=== PATIENT | male | born 1980 | race Caucasian/White ===

== ENCOUNTER 2022-04-07 20:10 | Emergency (ER) | payer OTHER, SELFPAY ==
[2022-04-07 20:12] VITALS: BP 124/82; PULSE 80; RESP 16; TEMP 36.2; O2SAT 96; BMI 23.0
--- NOTE | 2022-04-07 20:46 | CRLHL7_ITS ---
For Patients: As a result of the Cures Act, medical imaging exams and procedure reports are released immediately into your electronic medical record. You may view this report before your referring provider. If you have questions, please contact your health care provider. INDICATION: Injury. TECHNIQUE: Three views of the right thumb. COMPARISON: None. IMPRESSION : There is soft tissue irregularity and swelling along the interphalangeal joint of the thumb and a comminuted, intra-articular fracture of the dorsal radial aspect of the base of the distal phalanx of the thumb. A few punctate osseous fragments are displaced dorsally and radially. There is no dislocation. Dictated by Joaquina Ferrera MD @ 04/07/2022 9:12:19 PM (Electronically Signed)
--- NOTE | 2022-04-07 20:48 | ED_ITS ---
HPI - General Adult General Time Seen by Provider: 20:48 Date Seen: 04/07/22 Chief complaint: Laceration/Wound Stated complaint: thumb lac Time Seen by Provider: 04/07/22 20:25 Source: patient Mode of arrival: ambulatory Limitations: no limitations History of Present Illness HPI narrative: Patient is a 41 year white male who cut his hand on a table saw, basically cut his medial aspect of his thumb at the just distal to the IP joint. He has had limited flexion extension she got laceration from the mid just play on the distal the IP joint volar did distal about half way around the thumb he still able to move the thumb. He is up-to-date on tetanus within last year, denies any significant health history, no allergies to medicines. No recent illness Related Data Allergies Allergy/AdvReac Type Severity Reaction Status Date / Time No Known Drug Allergies Allergy Verified 04/07/22 20:15 Review of Systems Status of ROS: Reports: 6 or more systems reviewed and unremarkable except as noted in History and below PFSH PFS Social History Smoking Status: Current every day smoker How often do you have a drink containing alcohol: monthly or less AUDIT-C Alcohol total score: 1 Non-prescribed substance use: denies use Exam Narrative: Exam Narrative: Objective: The patient is alert orient x3 Vital signs unremarkable Right thumb shows a half way around circumferential laceration from the mid dorsum of the thumb just distal to the IP joint to the volar surface just distal to the IP joint day wound opens significantly and it is very deep down to probably through bone. He did cut this with a table saw. Reports he is up that on tetanus within the last year he has no sensation distally and he has does have some no real great cap refill on the side that the thumb is cut which is the lateral to medial side he is able to flex extend the thumb at the IP joint x-ray X-ray of the thumb is pending Procedure: After sterile soaking in Betadine and Shur-Clens and saline the wound was injected with 1% xylocaine and then subsequently closed with 3-0 simple of the simple interrupted Ethilon sutures. There was good skin edge approximation good hemostasis. He still had no sensation in the distal part of his thumb, but he was able to flex extend his thumb at the IP joint. There did not appear to be significant cap refill but the patient does have a lot a chemical in debris on his hand prior to irrigation and cleansing that did not fully remove and may have some pain there as well Const: Vital Signs, click to edit/add: Vital Signs - 24 hr 04/07/22 20:12 Temperature 97.1 F L Pulse Rate [Left P ulse Oximeter] 80 Respiratory Rate 16 Blood Pressure [Ri ght Upper Arm] 124/82 Pulse Oximetry 96 Oxygen Delivery Me thod Room Air Course Vital Signs Vital signs: Initial Vital Signs Temperature 97.1 F L 04/07/22 20:12 Temperature Source Temporal Artery Scan 04/07/22 20:12 Pulse Rate 80 04/07/22 20:12 Respiratory Rate 16 04/07/22 20:12 Blood Pressure 124/82 04/07/22 20:12 Blood Pressure Mean 96 04/07/22 20:12 Blood Pressure Position Sitting 04/07/22 20:12 Pulse Oximetry 96 04/07/22 20:12 Oxygen Delivery Method 04/07/22 20:12 Vital Signs Temperature 97.1 F L 04/07/22 20:12 Pulse Rate 80 04/07/22 20:12 Respiratory Rate 16 04/07/22 20:12 Blood Pressure 124/82 04/07/22 20:12 Pulse Oximetry 96 04/07/22 20:12 Oxygen Delivery Method 04/07/22 20:12 Temperature 97.1 F L 04/07/22 20:12 Pulse Rate 80 04/07/22 20:12 Respiratory Rate 16 04/07/22 20:12 Blood Pressure 124/82 04/07/22 20:12 Pulse Oximetry 96 04/07/22 20:12 Oxygen Delivery Method 04/07/22 20:12 Medical Decision Making MDM Narrative Medical decision making narrative: Given the significance of the injury is unclear at this time the patient will have a viable distal thumb however it was reattached he will need to engage in light activity, will put on Keflex 500 q.i.d. 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 Any difficulty probably could consult Orthopedics here in town, but I did mention them that they do not to hand surgery. Addendum: Patient's x-ray shows a distal tuft fracture, await Radiology reading my reading is that he has got a distal tuft fracture no marked displacement. Hand followup as described above PN his were comfortable plan Keflex, Kittrell, and he is up-to-date on tetanus. Discharge Plan Discharge Clinical Impression: Laceration Patient Disposition: Home w/ Parent or Adult Condition: Improved Additional Instructions: Light activity with the right hand, Kittrell as needed, with careful adherence to its sedation properties, no drinking or driving with the Kittrell. Keflex 500 q.i.d. x5 days. Hand surgery follow-up. instymed prescriptions Activity Level: Light activity Activity Detail: No use right hand until follow-up hand surgeon Discharge Diet: Regular Stand Alone Forms: [employer] Info Instructions
[2022-04-07] MEDS: cephALEXin 500 MG CAPSULE PO (21:08)
[2022-04-07] MEDS: HYDROCODONE/ACETAMIN 7.5-325 TABLET 1 TAB PO (21:08)
== END 2022-04-07 21:23 | disposition home or self-care (01) ==
PROVIDERS: Emergency Provider Family Medicine
DX: S61.011A Laceration without foreign body of right thumb without damage to nail, initial encounter (principal); W31.2XXA Contact with powered woodworking and forming machines, initial encounter
CPT/HCPCS: 12001; 73140; 99283; A9270

== ENCOUNTER 2025-05-21 09:38 | Emergency (ER) | payer OTHER, SELFPAY ==
--- OUTSIDE RECORDS SUMMARY | 2025-05-21 09:45 | XMS_ITS | Clinical Summary ---
Author Organization [facility] Address [address], [place] [address] Care Team Providers Care After School Caregiver Name Role Phone Polo-FritzEduardo [facility] Primary Care Provid er Source Comments You are receiving this document as you are listed as the primary care provider,follow-up provider, or the patient has been referred to you for consultation.This is in compliance with the Medicare andMedicaid EHR Incentive Program,which states Providers who transition their patient to another setting of careor provider of care or refers their patient to another provider of care shouldprovide summary care record for each transition of care or referral. [facility] Allergies No known active allergies Medications No known medications Active Problems Problem Noted Date Diagnosed Date Warts, genital 12/16/2016 Problems related to high-risk sexual behavior Overview (05/24/2019): Sexually Active High-risk Tobacco use disorder Immunizations Immunization Administration Dates Next Due MMR 10/14/1993,11/27/1984 PCV20 ([id number]) 08/10/2023 Polio, Unspecified Formulation 01/22/1985,1984 Td (7+ yrs) 01/22/1985,11/27/1984 Tdap 02/06/2021 Social History Tobacco Use Types Packs/Day Years Used Date Smoking Tobacco: Every Day Cigarettes 1 18 Smokeless Tobacco: Never Tobacco Cessation:Ready to Q uit: Not Asked; Counseling Given: Not Answered Alcohol Use Standard Drinks/Week Comments Yes 0 (1 standard drink = 0.6 oz pur e alcohol) occasionally PHQ-2 Answer Date Recorded PHQ-2 Score 0 08/10/2023 Financial Resource Strain Answer Date R ecorded Is it hard for you to pay fo r the very basics like food, housing, medical care or heating? No 08/10/2023 Food Insecurity Answer Date Recorded Does your food run out before you have the money to buy more? No 08/10/2023 Transportation Needs Answer Date Record ed Does a lack of transportatio n keep you from your medical appointments or from getting your medications? No 024 Sex and Gender Information Value Date Recorded Sex Assigned at Not on file Legal Sex Male 5:50 AM CDT Gender Identity Not on file Sexual Orientation Not on file Last Filed Vital Signs Vital Sign Reading Time Taken Comments Blood Pressure 98/46 08/10/2023 6:58 AM SEXUAL ASSAULT RESPONSE COORDINATOR Pulse 58 08/10/2023 6:58 AM SEXUAL ASSAULT RESPONSE COORDINATOR Temperature 37.1 C (98.7 F) 03/26/2022 10:51 PM CDT Respiratory Rate 20 03/26/2022 10:51 PM CDT Oxygen Saturation 100% 03/26/2022 10:51 PM CDT Inhaled Oxygen Concentration - - Weight 73 kg (161 lb) 08/10/2023 6:58 AM SEXUAL ASSAULT RESPONSE COORDINATOR Height 182.9 cm (6') 08/10/2023 6:58 AM SEXUAL ASSAULT RESPONSE COORDINATOR Body Mass Index 21.84 08/10/2023 6:58 AM SEXUAL ASSAULT RESPONSE COORDINATOR Plan of Treatment Health Maintenance Due Date Last Done Comments IPV (Polio) Vaccine (3 of 3 - 4-dose series) 07/25/1985 01/22/1985, 11/27/1984 HIV Screening (Preventive Services) 1997 HepB Vaccine (1) 2000 HPV Vaccine (1 - 3-dose SCDM series) 2008 COVID-19 Vaccine (2023-2 5 season) 2025 Influenza Vaccine (#1) 2025 Adult Preventive Visit 08/10/2025 08/10/2023 Cholesterol 08/10/2028 08/10/2023 DTaP/Tdap/Td Vaccine (2 - Tdap) 02/06/2031 02/06/2021, 01/22/1985, 11/27/1984 Zoster/Shingles Vaccine (1 o f 2) 2031 Hep C Screening (Preventive Services) Completed 08/10/2023 Pneumococcal Vaccine Completed 08/10/2023 HepA Vaccine Aged Out No longer eligi ble based on patient's age to complete this topic Hib Vaccine Aged Out No longer eligi ble based on patient's age to complete this topic MCV4 Vaccine Aged Out No longer eligi ble based on patient's age to complete this topic Meningococcal B Vaccine Aged Out No l onger eligible based on patient's age to complete this topic Procedures Procedure Name Priority Date/Time Associated Diagnosis Comments HEPATITIS C ANTIBODY, WITH REFLEX (ANTI-HCV) Routine 08/10/2023 7:57 AM SEXUAL ASSAULT RESPONSE COORDINATOR Need for hepatitis C screening test LIPID PANEL & DIRECT LDL (IF NEEDED) Routine 08/10/2023 7:57 AM SEXUAL ASSAULT RESPONSE COORDINATOR Screening for cholesterol level from Last 3 Months or Most Recently Relevant to Health Maintenance Results * (ABNORMAL) Lipid Panel and Direct LDL(If Needed) (08/10/2023 7:57 AM SEXUAL ASSAULT RESPONSE COORDINATOR) Cholesterol 215(H) 0 - 199 mg/dL 08/10/2023 2:52 PM [facility] Triglyceride 63 <=149 mg/dL 08/10/2023 2:52 PM [facility] HDL Cholesterol 58 >=40 mg/dL 2:52 PM [facility] LDL, Calculated 144(H) <130 mg/dL 2:52 PM [facility] Non HDL Chol, Calculated 157 <=159 mg/dL 08/10/2023 2:52 PM [facility] Cholesterol/HDL Ratio 3.7 <=5.0 08/10/2023 2:52 PM [facility] Hours Fasting 0.1 8 - 12 Hours 08/10/2023 2:52 PM [facility] Blood Venipuncture / Unknown 08/10/2023 7:57 AM SEXUAL ASSAULT RESPONSE COORDINATOR 08/10/2023 7:57 AM SEXUAL ASSAULT RESPONSE COORDINATOR Eduardo Cervantes [facility] Shira l Result [facility] [address] [place] [address], [facility] [phone] * Hepatitis C Antibody, with Reflex (08/10/2023 7:57 AM SEXUAL ASSAULT RESPONSE COORDINATOR) Hepatitis C Antibody Negative (Non Reactive) Negative (Non Reactive) 08/10/2023 4:15 PM SEXUAL ASSAULT RESPONSE COORDINATOR [facility] Comment:Antibodies to HCV no t detected. Does not exclude the possiblity of exposure to HCV. Blood Venipuncture / Unknown 08/10/2023 7:57 AM SEXUAL ASSAULT RESPONSE COORDINATOR 08/10/2023 7:57 AM SEXUAL ASSAULT RESPONSE COORDINATOR Eduardo MagananteMaryluSundeliashari [facility] Shira l Result [facility] [address] from Last 3 Months or Most Recently Relevant to Health Maintenance Insurance [employer]ED [employer] Care Teams After School Caregiver Relationship Specialty Start Date End Date Eduardo Cervantes, ANA [address] [place] [address] PCP - General Family Practice 12/15/16
--- OUTSIDE RECORDS SUMMARY | 2025-05-21 09:45 | XMS_ITS | Clinical Summary ---
Author Organization [employer] [facility] Address [facility] [place] [address] Care Team Providers Care Sales Agent Food Vending Service Name Role Phone Pcp, No Primary Care Provider Unavailabl e Allergies No known active allergies Medications imiquimod 2.5 % topical cream Apply topically to affected area(s). 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 Gender Identity Not on file Sexual Orientation Not on file Obstetrics History Last Filed Vital Signs Vital Sign Reading Time Taken Comments Blood Pressure 108/64 12/25/2016 9:18 AM CDT Pulse 75 12/25/2016 9:18 AM CDT Temperature 36.7 C (98 F) 12/25/2016 9:18 AM CDT Respiratory Rate 14 12/25/2016 9:18 AM CDT Oxygen Saturation 97% 12/25/2016 9:18 AM CDT Inhaled Oxygen Concentration - - Weight 66.8 kg (147 lb 3.2 oz) 12/25/2016 9:18 A M CDT Height 181 cm (5' 11.25) 12/25/2016 9:18 AM CDT Body Mass Index 20.39 12/25/2016 9:18 AM CDT Plan of Treatment Health Maintenance Due Date Last Done Comments Tetanus booster 1992 Depression screening for age 12+ 1993 HIV for age 15-65 1996 Hepatitis C screening for ag e 18-79 1999 Hepatitis B series for 19+ ( 1 of 3 - 19+ 3-dose series) 2000 HPV series for age 9-45 (1 - 3-dose SCDM series) 2008 Lipids for age 35-44 2016 BMI (ht and wt on same day) for age 18+ 12/25/2017 12/25/2016 Influenza Vaccine (#1) 2025 RSV vaccine for adults or (1 - 1-dose 75+ series) 2056 Pneumococcal series for age 6-49 Aged Out No longer eligible based on patient's age to complete this topic Insurance BLUE CR[employer] OF [employer]-ITS Care Teams Sales Agent Food Vending Service Relationship Specialty Start Date End Date Pcp, No . PCP - General 07/03/13
--- OUTSIDE RECORDS SUMMARY | 2025-05-21 09:45 | XMS_ITS | Clinical Summary ---
Author Organization [facility] Address [address] [place] [id number] Care Team Providers Care Skein Winder Name Role Phone No Ref-Primary, Physician Primary Care Provider Allergies No known active allergies Medications oxyCODONE (ROXICODONE) 5 MG tablet Take 1 tablet (5 mg) by mouth every 6 hours as needed for severe pain 10 tablet 03/27/2022 Active Immunizations Immunization Administration Dates Next Due TDAP (Adacel,Boostrix) 02/06/2021 Social History Tobacco Use Types Packs/Day Years Used Date Smoking Tobacco: Never Assessed Adolescent Education Answer Date Record ed Getting School Help Needed Not on file 04/23 Sex and Gender Information Value Date Recorded Sex Assigned at Not on file Legal 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
[2025-05-21 09:58] VITALS: BP 109/67; PULSE 53; RESP 20; TEMP 36.8; O2SAT 98; BMI 22.2
--- NOTE | 2025-05-21 10:20 | ED.GENADULT ---
HPI - General Adult General Date Seen: 05/21/25 Chief complaint: Extremity Pain/Injury, Upper Stated complaint: R hand splinter Time Seen by Provider: 05/21/25 09:42 Source: patient Mode of arrival: ambulatory Limitations: no limitations History of Present Illness HPI narrative: Patient is a 45-year-old male for concerns of a splinter in his right index finger. He states about 30 minutes prior a piece of wood went through his finger. This occurred between MCP and PIP on the volar aspect he states the large chunk that came on the radial aspect pulled out and then he was able to pull the small lower part on the ulnar aspect out. He believes he got at all has got all of it out and does not feel a splinter currently but his made him come in to make sure. No other concerns noted. Related Data Previous Rx's ?Medication ?Instructions ?Recorded cephalexin 500 mg capsule 500 mg PO QID #20 caps 05/21/25 Allergies Allergy/AdvReac Type Severity Reaction Status Date / Time No Known Drug Allergies Allergy Verified 04/07/22 20:15 PFSH [facility] Social History Smoking Status: Current every day smoker How often do you have a drink containing alcohol: monthly or less AUDIT-C Alcohol total score: 1 Non-prescribed substance use: denies use Exam Narrative: Exam Narrative: Const: Well-nourished, Well-developed, in no distress Eyes: PERRL, no conjunctival injection, and symmetrical lids HENT: Atraumatic external nose and ears. Moist mucous membranes. MSK:Extremities w/o deformity, Normal Active ROM Skin: Warm, Dry. There is a 2 mm laceration on the volar aspect of the right index finger between the MCP and the IP and a pinpoint spot on the ulnar aspect. Bedside ultrasound performed by myself does not show any clear signs of splinters. Neuro: Normal Muscle tone, No focal neurological deficits. Psych: Awake, Alert, & Oriented x3. Appropriate mood and affect. Const: Vital Signs, click to edit/add: Vital Signs - 24 hr 05/21/25 09:58 Temperature 98.2 F Pulse Rate [Pulse Oximeter] 53 L Respiratory Rate 20 Blood Pressure [Ri ght Upper Arm] 109/67 Pulse Oximetry 98 Oxygen Delivery Me thod Room Air Course Vital Signs Vital signs: Initial Vital Signs Temperature 98.2 F 05/21/25 09:58 Temperature Source Temporal Artery Scan 05/21/25 09:58 Pulse Rate 53 L 05/21/25 09:58 Respiratory Rate 20 05/21/25 09:58 Blood Pressure 109/67 05/21/25 09:58 Blood Pressure Mean 81 05/21/25 09:58 Pulse Oximetry 98 05/21/25 09:58 Oxygen Delivery Method Room Air 05/21/25 09:58 Vital Signs Temperature 98.2 F 05/21/25 09:58 Pulse Rate 53 L 05/21/25 09:58 Respiratory Rate 20 05/21/25 09:58 Blood Pressure 109/67 05/21/25 09:58 Pulse Oximetry 98 05/21/25 09:58 Oxygen Delivery Method Room Air 05/21/25 09:58 Temperature 98.2 F 05/21/25 09:58 Pulse Rate 53 L 05/21/25 09:58 Respiratory Rate 20 05/21/25 09:58 Blood Pressure 109/67 05/21/25 09:58 Pulse Oximetry 98 05/21/25 09:58 Oxygen Delivery Method Room Air 05/21/25 09:58 Medical Decision Making MDM Narrative Medical decision making narrative: Patient is a 45-year-old male presenting for concerns of a splinter in his right finger. He states he believes he got it all out but is not sure. I did a bedside ultrasound and I do not see signs of a retained foreign body. I did inform him that I cannot definitively say there is not a foreign body in I can do a nerve block and see if I can find 1 with a tweezers but he declined at this time. I will still start him on antibiotics to help prevent infection as this was a puncture wound. He is agreeable to this plan. Discharge Plan Discharge Clinical Impression: Splinter Patient Disposition: Home, Self-Care Condition: Stable Additional Instructions: I do not see any signs of a retained foreign body on the ultrasound. If pain is not improving or you start noticing other signs of a splinter return for re-evaluation. I will start you on antibiotics out to help prevent infection Prescriptions: New cephalexin 500 mg capsule 500 mg PO QID Qty: 20 0RF Follow Up/Referrals: Provider,Not a Local [Primary Care Provider, Family Practice] Stand Alone Forms: [facility] Info Instructions Procedures POC Ultrasound Skin/Soft Tissue Anatomical areas examined: Other (Right index finger) Indications: reported foreign body Exam type: limited soft tissue ultrasound Findings: normal exam Impression: normal limited soft tissue ultrasound
== END 2025-05-21 10:47 | disposition home or self-care (01) ==
LOC: ED 10:36
PROVIDERS: Emergency Provider Student in an Organized Health Care Education/Training Program
DX: S61.240A Puncture wound with foreign body of right index finger without damage to nail, initial encounter (principal); W45.8XXA Other foreign body or object entering through skin, initial encounter
CPT/HCPCS: 99282; 99283